=== PATIENT | male | born 1980 | race Hispanic/Latino ===

== ENCOUNTER 2019-04-29 14:15 | Emergency (ER) | payer BC ==
[2019-04-29 15:47] LABS: #Basophils 0.1 thou/uL (0.0-0.2); #Lymphocytes 2.2 thou/uL (1.20-3.40); #Monocytes 0.7 thou/uL (0.11-0.59); #Neutrophils 7.6 thou/uL (1.40-6.50); %Basophils 0.6 % (0.0-1.0); %Eosinophils 0.3 % (0.0-10.0); %Lymphocytes 20.4 % (21.0-51.0); %Monocytes 6.5 % (0.0-10.0); %Neutrophils 72.2 % (42.0-75.0); Hemoglobin 16.2 g/dL (14.0-18.0); Mean Corpuscular HGB CONC 35.7 g/dL (32.0-36.0); Mean Corpuscular Hemoglobin 32.7 pg (27.0-31.0); Mean Corpuscular Volume 91.7 fL (78.0-98.0); Mean Platelet Volume 6.3 fL (7.4-10.4); Platelet Count 224 thou/uL (130-400); RBC Distribution Width 12.5 % (11.5-14.5); Red Blood Cell (RBC) Count 4.94 mill/uL (4.70-6.10); White Blood Cell (WBC) Count 10.5 thou/uL (4.8-10.8)
[2019-04-29 16:14] LABS: ALT (SGPT) 23 U/L (8-55); AST (SGOT) 20 U/L (5-34); Albumin 4.9 g/dL (3.5-5.0); Alkaline Phosphatase 93 U/L (40-150); Anion Gap 14 mmol/L (10-20); BUN (Urea Nitrogen) 14 mg/dL (8.9-20.6); Bilirubin, Total 0.8 mg/dL (0.2-1.2); Calc. Creatinine Clearance 0 mL/min (70-130); Calcium 9.6 mg/dL (7.8-10.44); Carbon Dioxide 24 mmol/L (22-29); Chloride 105 mmol/L (98-107); Estimated GFR-MDRD 54; Globulin 3.1 g/dL (2.4-3.5); Glucose 90 mg/dL (70-105); Potassium 4.2 mmol/L (3.5-5.1); Sodium 139 mmol/L (136-145)
[2019-04-29 16:36] LABS: Bacteria/HPF None Seen HPF (None Seen); Bilirubin Negative (Negative); Blood, Urine 2+ (Negative); Clarity Clear (Clear); Glucose, Urine (Dipstick) Normal (Negative); Leukocyte Negative Leu/uL (Negative); Nitrite Negative (Negative); Protein, Urine (Dipstick) 10 mg/dL (Neg-Trace); RBC/HPF Greater than 50 HPF (0-3); Squamous Epithelial None Seen HPF (0-3); Urobilinogen Normal mg/dL (Less than 2); WBC/HPF 0-3 HPF (0-3)
== END 2019-04-29 17:22 | disposition home or self-care (01) ==
LOC: ERS 14:15
DX: R31.9 Hematuria, unspecified (principal)
CPT/HCPCS: 36415; 80053; 81003; 81015; 85025; 99283

== ENCOUNTER 2019-05-29 09:11 | Outpatient (CLI) | payer BC ==
[2019-05-29] MEDS ORDERED: ISOVUE-370 76%-LOCM 1 ML ONE (12:31)
--- NOTE | 2019-05-29 14:45 | CT ---
CT OF ABDOMEN AND PELVIS PERFORMED WITH AND WITHOUT INTRAVENOUS CONTRAST ENHANCEMENT: HISTORY: Patient diagnosed with renal cell carcinoma. In 2017 had right kidney removed. No chemotherapy. FINDINGS: The lung bases are clear. The liver, spleen, pancreas, and gallbladder regions all appear unremarkable. Right and left adrenal glands are normal in appearance. The right kidney has been removed. No signs of any mass in the region of the renal bed. The left kidney shows no evidence of any mass. There i s no significant dilatation of the left collecting system or ureter; however, there is a calculus loc ated within the left ureter at the level of the pelvic brim that measures 5 mm. There is no signific ant abdominal or mesenteric adenopathy. There is a tiny fat-containing midline hernia seen above the level of the umbilicus and a small fat-containing paraumbilical hernia. CT OF PELVIS PERFORMED WITH AND WITHOUT CONTRAST ENHANCEMENT: Minimal sigmoid diverticulosis is noted. No adenopathy or mass. Review of osseous structures showed no lytic or blastic bony change. IMPRESSION: 1. Postop right nephrectomy change. No signs of any metastatic disease or evidence for any recurren t tumors in the renal bed. 2. A 5 mm left ureteral calculus located at the pelvic brim. There is not any significant dilatatio n of the left collecting system associated with this. 3. Some minimal colonic diverticulosis. 4. Prostate calcifications. POS: [facility]
== END 2019-05-29 09:12 | disposition home or self-care (01) ==
LOC: BICCT 09:11
PROVIDERS: ATTEND Urology
DX: C64.1 Malignant neoplasm of right kidney, except renal pelvis (principal); N20.1 Calculus of ureter; K57.30 Diverticulosis of large intestine without perforation or abscess without bleeding; N42.0 Calculus of prostate; Z90.5 Acquired absence of kidney
CPT/HCPCS: 74178; Q9966

== ENCOUNTER 2020-03-27 14:06 | Outpatient (CLI) | payer BC ==
--- NOTE | 2020-03-27 14:34 | ULT ---
US Renal Bilateral STANDARD HISTORY: Right renal cancer COMPARISON: None. FINDINGS: The patient is status post right nephrectomy. The left kidney is normal measuring 12.9 cm in length w ithout focal mass or hydronephrosis. No shadowing calculi are seen. The bladder is grossly unremarkable. IMPRESSION: Status post right nephrectomy, otherwise unremarkable exam
== END 2020-03-27 14:07 | disposition home or self-care (01) ==
LOC: BICULT 14:06
PROVIDERS: ATTEND Urology
DX: Z08 Encounter for follow-up examination after completed treatment for malignant neoplasm (principal); Z85.528 Personal history of other malignant neoplasm of kidney; Z90.5 Acquired absence of kidney
CPT/HCPCS: 76770